=== PATIENT | male | born 1960 | race African-American/Black ===

== ENCOUNTER 2016-12-19 23:45 | Observation (INO) ==
[2016-12-20] MEDS ORDERED: SODIUM CHLORIDE 0.9% 500 ML IV STA (00:04)
[2016-12-20] MEDS ORDERED: ALUM/MAG/SIMETH/LIDO VISC 1:1 30 ML BOTTLE PO STA (00:04)
[2016-12-20] MEDS ORDERED: MORPHINE 2 MG/1 ML SYRINGE IV STA (00:04)
[2016-12-20] MEDS ORDERED: ONDANSETRON 4 MG/2 ML VIAL IV STA (00:04)
[2016-12-20] MEDS ORDERED: ASPIRIN 325 MG TABLET PO STA (00:04)
[2016-12-20] MEDS ORDERED: NITROGLYCERIN 2% OINT 1 INCH/GM PACK TOP STA (00:04)
--- NOTE | 2016-12-20 00:21 | Emergency Department Note ---
Omari Rossi Manpreet, am scribing for, and in the presence of, Chance Bach MD 00:19. Mikala Rossi Charles R, MD, personally performed the services described in this documentation, ascribed by Flip Salcido in my presence, and it is both accurate and complete . Arrival - Arrival ED Nursing Triage Note: per [facility], ambulance was called by witnesses stating patient was walking down road yelling he was having cp. upon ariival patient was found lying in the grass, unresponsive to voice, became responsive with sternal rub. nitro sub. given enroute x 2 Mode of Arrival: Stretcher Time Seen by Provider: 12/19/16 23:53 - History of Present Illness HPI Narrative: Pt is a 55 y/o male who presents to the ED with CC of CP and Abd pain since earlier tonight. Pt states he felt burning in his stomach and heart. Pt states he is homeless and has no PMHx of [place]. Pt reports of smoking tobacco, occasional EtOH use, and crack/cocaine use. Pt admits to smoking crack drinking beer earlier tonight. Pt denies PMHx of hepatitis or HIV. No other pains/complaints reported to ED. Onset (ago): hour(s) Consistency: constant Severity: moderate Severity scale (1-10): 4 Quality: burning Allergies/Adverse Reactions: Allergies Allergy/AdvReac Type Severity Reaction Status Date / Time No Known Allergies Allergy Unverified 04/04/16 23:06 Home Medications: Home Medications Medication Instructions Recorded Confirmed Type Ondansetron Odt Tab [Zofran Odt] 4 mg PO Q6H #15 tablet 12/12/16 Rx Pantoprazole Tab [Protonix Tab] 40 mg PO DAILY #14 tablet 12/12/16 Rx Review of System - Review of System 12 point system: reviewed and no additional remarkable complaints except as stated - Review of System Constitutional: Absent: chills, fever Respiratory: Absent: respiratory distress, wheezing Cardiovascular: Present: chest pain Gastrointestinal: Present: abdominal pain. Absent: nausea, vomiting, diarrhea Musculoskeletal: Absent: arm pain, back pain, lower back pain, leg pain, neck pain Neurological: Absent: headache, weakness Medical,Surgical,& Family Hx - Medical History Rheumatology: History of;: Gout Gastrointestinal: History of: GI Problems (ulcers) - Surgical History Abdominal Surgeries: Surgical HX of: Abdominal Surgery - Social History Smoking Status: Current every day smoker Frequency of Alcohol Use: Unknown Type of Drug Use: Unknown Exam Vital Signs: Vital Signs Temperature 97.5 F L 12/19/16 23:51 Pulse Rate 92 H 12/19/16 23:51 Respiratory Rate 21 12/19/16 23:51 Blood Pressure 149/99 12/19/16 23:51 O2 Sat by Pulse Oximetry 99 12/19/16 23:51 - General General appearance: alert - Head Head exam: Present: atraumatic, other (Temporal wasting). Absent: normal inspection - Eye Eye exam: Present: normal appearance, PERRL, EOMI - ENT ENT exam: Present: normal exam, normal oropharynx, mucous membranes moist, TM's normal bilaterally - Neck Neck exam: Present: normal inspection, full ROM, trachea midline. Absent: tenderness, thyromegaly - Chest Chest inspection: Present: normal inspection, symmetric chest wall rise. Absent : tenderness - Respiratory Respiratory exam: Present: normal lung sounds bilaterally. Absent: accessory muscle use, prolonged expiratory phase - Cardiovascular Cardiovascular exam: Present: regular rate, normal rhythm, normal heart sounds. Absent: murmur, rubs, gallop - Abdominal Exam Abdominal exam: Present: tenderness (Epigastric tenderness), normal bowel sounds. Absent: soft, distention - Extremities Exam Extremities exam: Present: normal inspection, full ROM. Absent: tenderness, pedal edema - Back Exam Back exam: Present: normal inspection, full ROM. Absent: tenderness - Neurological Exam Neurological exam: Present: alert, oriented X3, CN II-XII intact, reflexes normal - Psychiatric Psychiatric exam: Present: normal affect, normal mood - Skin Skin exam: Present: warm, dry, intact, normal color. Absent: pallor Course - Consultations Consultation #1: Hospitalist will admit patient Time: 01:16 Results - Labs CBC & BMP: 12/20/16 Unknown 12/20/16 00:22 Lab Results: I have reviewed the patients labs Labs: Laboratory Tests 12/20/16 12/20/16 12/20/16 00:22 00:22 00:22 INR 1.0 PT Patient/Control Mix 10.1 Urine pH 8.0 Ur Specific [place] 1.006 Urine Ketones 5 Urine Urobilinogen < 2.0 H Urine RBC <1 Urine WBC 1 U Cocaine Metab Screen Positive H U Cannabinoids Screen Positive H Laboratory Tests 12/20/16 12/20/16 12/20/16 00:22 00:22 Unknown WBC 7.7 RBC 5.23 Hgb 12.3 L Hct 38.0 L MCV 72.7 L MCH 24 L [place] % (Auto) 13.0 H [place] # (Auto) 1.0 H Sodium 139 Potassium 3.4 L Chloride 100 Carbon Dioxide 30 Anion Gap 12.4 Serum Alcohol < 15 L Disposition Clinical Impression: Chest pain, Homeless, Cocaine abuse, Cannabis abuse, Hypokalemia Case discussed with: patient Disposition: Disch To Home/Self Care Condition: Stable Time of Disposition: 01:15
[2016-12-20] MEDS ORDERED: MORPHINE 2 MG/1 ML SYRINGE ONE (00:30)
[2016-12-20] MEDS ORDERED: NITROGLYCERIN 2% OINT 1 INCH/GM PACK TOP ONE (00:30)
[2016-12-20] MEDS ORDERED: ASPIRIN 325 MG TABLET ONE (00:30)
[2016-12-20] MEDS ORDERED: ONDANSETRON 4 MG/2 ML VIAL ONE (00:30)
[2016-12-20] MEDS ORDERED: ALUM/MAG/SIMETH/LIDO VISC 1:1 30 ML BOTTLE PO ONE (00:31)
[2016-12-20 00:38] LABS: PT Patient Result 10.1 SECS
[2016-12-20 00:42] LABS: Apearance,Urine CLEAR (Clear); Bilirubin,Urine Negative (Negative); Blood, Urine Negative (Negative); Glucose,Urine (UA) Negative (Negative); Ketones,Urine 5 mg/dL (Negative); Mucus,Urine Occasional /LPF (Occasional); Nitrite,Urine Negative (Negative); Protein,Urine Negative; RBC,Urine <1 /HPF (0-4); Urine Color Straw (Yellow); Urine Specific Gravity 1.006 (1.001-1.035); Urine Urobilinogen < 2.0 EU/DL (0.2-1.0); WBC,Urine 1 /HPF (0-6)
[2016-12-20 00:44] LABS: Barbiturates Screen,Urine Negative (Negative); Benzodiazepines Screen,Urine Negative (Negative); Cannabinoid Screen,Urine Positive (Negative); Opiate Screen,Urine Negative (Negative); Phencyclidine Screen,Urine Negative (Negative)
[2016-12-20 00:54] LABS: Alanine Aminotransferase 17 U/L (16-61); Alkaline Phosphatase 109 U/L (45-117); Amylase 70 U/L (25-115); Aspartate Amino Transferase 20 U/L (0-37); Bilirubin,Total < 0.39 MG/DL (0.2-1.0); Blood Urea Nitrogen 9 MG/DL (7-18); Calcium 9.4 MG/DL (8.5-10.1); Glucose 102 MG/DL (74-106); Magnesium 2.1 MG/DL (1.8-2.4); Osmolality,Calculated 275.5 MOS/KG (273-304); Potassium 3.4 MMOL/L (3.5-5.1); Sodium 139 MMOL/L (136-145); Total Protein 7.3 G/DL (6.4-8.3)
[2016-12-20 00:57] LABS: Basophils % 0.4 % (0.0-0.8); Eosinophils # 0.1 10*3/uL (0.0-0.87); Eosinophils % 1.2 % (0.00-10.9); Hemoglobin 12.3 GM/DL (14.0-18.0); Immature Granulocytes % 0.5 %; Immature Granulocytes Absolute 0.04 #; Lymphocytes # 2.1 10*3/uL (1.4-4.0); Lymphocytes % 27.2 % (21.2-54.2); Mean Corpuscular HGB Conc 32.4 GM/DL (32-36); Mean Corpuscular Hemoglobin 24 PG (27-34); Mean Corpuscular Volume 72.7 FL (87-102); Mean Platelet Volume 11.2 FL (9.6-12.0); Neutrophils # 4.5 10*3/uL (1.4-7.4); Neutrophils % 57.7 % (38.7-73.9); Platelet Count 277 T/CUMM (130-400); Red Blood Count 5.23 MC/CUMM (3.8-5.5); Red Cell Distribution Width 13.6 % (9.3-17.3); White Blood Count 7.7 T/CUMM (4-12)
[2016-12-20] MEDS ORDERED: POTASSIUM CHLORIDE 20 MEQ TABLET PO STA (01:07)
[2016-12-20] MEDS ORDERED: POTASSIUM CHLORIDE 20 MEQ TABLET PO ONE (01:17)
[2016-12-20] MEDS ORDERED: ENOXAPARIN 100 MG/ML SYRINGE SUBCUT STA (01:33)
[2016-12-20] MEDS ORDERED: ENOXAPARIN 80 MG/0.8 ML SYRINGE SUBCUT ONE (01:36)
--- NOTE | 2016-12-20 02:06 | Hospitalist History & Physical ---
Assessment and Plan (1) Cannabis abuse Status: Acute Current Visit: Yes (2) Chest pain Status: Acute Current Visit: Yes (3) Cocaine abuse Status: Acute Current Visit: Yes (4) Hypokalemia Status: Acute Assessment and plan: Our plan for this patient will be admitted him to our service. Check cardiac enzymes and consult cardiology. Patient will be admitted to a telemetry bed. Hopefully can be discharged after cardiology evaluation. Current Visit: Yes History of Present Illness Chief complaint: Chest pain History of present illness: Mr. Ruiz is a 56 year old male with past medical history significant for drug abuse presents to our ER tonight. Patient said he has been having chest pain this been going on for little while. He smoked some crack which usually makes it feel better. He reports the chest pain did go away but then it returned as a burning sensation in his chest. He felt short of breath and was diaphoretic. He was radiating to his neck and down his left arm. Patient thought he was having a heart attack and came into our hospital for further evaluation. Patient was admitted to our service through the emergency room. Home Medications Medication Instructions Recorded Confirmed Type Ondansetron Odt Tab [Zofran Odt] 4 mg PO Q6H #15 tablet 12/12/16 Rx Pantoprazole Tab [Protonix Tab] 40 mg PO DAILY #14 tablet 12/12/16 Rx Allergies Allergy/AdvReac Type Severity Reaction Status Date / Time No Known Allergies Allergy Unverified 04/04/16 23:06 Medical,Surgical,& Family Hx - Medical History Rheumatology: History of;: Gout Gastrointestinal: History of: GI Problems (ulcers) - Surgical History Abdominal Surgeries: Surgical HX of: Abdominal Surgery - Family History Family History: noncontributory Additional Family History: Does not know of any history - Social History Smoking Status: Current every day smoker Frequency of Alcohol Use: Unknown Type of Drug Use: Cocaine, Marijuana 12 point system: reviewed and no additional remarkable complaints except as stated Exam - Constitutional Vitals: - General General appearance: alert - Head Head exam: Present: atraumatic, - Eye Eye exam: Present: normal appearance, PERRL, EOMI - ENT ENT exam: Present: normal exam, normal oropharynx, mucous membranes moist, TM's normal bilaterally - Neck Neck exam: Present: normal inspection, full ROM, trachea midline. - Chest Chest inspection: Present: normal inspection, symmetric chest wall rise. - Respiratory Respiratory exam: Present: normal lung sounds bilaterally. - Cardiovascular Cardiovascular exam: Present: regular rate, normal rhythm, normal heart sounds. - Abdominal Exam Abdominal exam: Present: tenderness (Epigastric tenderness), normal bowel sounds. - Extremities Exam Extremities exam: Present: normal inspection, full ROM. - Back Exam Back exam: Present: normal inspection, full ROM. Absent: tenderness - Neurological Exam Neurological exam: Present: alert, oriented X3, CN II-XII intact, reflexes normal - Psychiatric Psychiatric exam: Present: normal affect, normal mood - Skin Skin exam: Present: warm, dry, intact, normal color. Absent: pallor Results - Labs CBC & BMP: 12/20/16 Unknown 12/20/16 00:22
[2016-12-20] MEDS: SODIUM CHLORIDE 0.9% 1,000 ML IV SCH ×2 (02:20→17:44)
[2016-12-20] MEDS: NITROGLYCERIN 2% OINT 1 INCH/GM PACK TOP SCH ×3 (05:34→17:45)
[2016-12-20 05:45] LABS: Basophils % 0.6 % (0.0-0.8); Eosinophils # 0.1 10*3/uL (0.0-0.87); Eosinophils % 2.1 % (0.00-10.9); Hematocrit 32.8 VOL% (42.0-52.0); Hemoglobin 10.7 GM/DL (14.0-18.0); Immature Granulocytes % 0.4 %; Immature Granulocytes Absolute 0.03 #; Lymphocytes # 2.1 10*3/uL (1.4-4.0); Lymphocytes % 31.2 % (21.2-54.2); Mean Corpuscular HGB Conc 32.6 GM/DL (32-36); Mean Corpuscular Hemoglobin 24 PG (27-34); Mean Corpuscular Volume 72.9 FL (87-102); Monocytes # 1.1 10*3/uL (0.11-0.8); Neutrophils # 3.4 10*3/uL (1.4-7.4); Neutrophils % 49.7 % (38.7-73.9); Platelet Count 218 T/CUMM (130-400); Red Cell Distribution Width 13.3 % (9.3-17.3); White Blood Count 6.8 T/CUMM (4-12)
[2016-12-20 06:06] LABS: Eosinophils 1 % (0-10); Lymphocytes 33 % (20-55); Segmented Neutrophils 54 % (50-85); Total Cells Counted 100
[2016-12-20 06:07] LABS: Hypochromasia 1+; Microcytosis 1+; Platelet Estimate Normal
[2016-12-20 06:43] LABS: Albumin 3.3 G/DL (3.4-5.0); Bilirubin,Total 0.9 MG/DL (0.2-1.0); Calcium 8.3 MG/DL (8.5-10.1); Magnesium 2.3 MG/DL (1.8-2.4); Osmolality,Calculated 276.4 MOS/KG (273-304); Potassium 4.1 MMOL/L (3.5-5.1); Risk Ratio 2.14; Total Protein 6.1 G/DL (6.4-8.3); VLDL CHOLESTEROL 9.4 MG/DL
--- NOTE | 2016-12-20 06:43 | EKG Report ---
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
--- NOTE | 2016-12-20 06:43 | EKG Report ---
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
--- NOTE | 2016-12-20 06:43 | EKG Report ---
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
--- NOTE | 2016-12-20 06:46 | XRay Report ---
XR chest 1V portable Indication: Chest pain Comparison: None Technique: Single frontal view of the chest Findings: Heart size appears within normal limits. Chronic change of the lungs without focal consolidation, pleural effusion, or pneumothorax. 1 cm nodular density projects over the right lower lung which may reflect nipple shadow. Recommend repeat 2 view chest x-ray with nipple markers to exclude pulmonary nodule. Osseous and surrounding soft tissue structures demonstrate no acute abnormality. IMPRESSION: As above. PROCEDURE INTERPRETED AT [facility] DEPARTMENT OF RADIOLOGY Final Report Signed by: Dr Zheng Brice
--- NOTE | 2016-12-20 07:56 | XRay Report ---
XR chest 2V Indication: SOB Comparison: Chest x-ray dated December 20, 2016 Technique: Single frontal view of the chest Findings: Heart size appears within normal limits. Chronic change of the lungs without focal consolidation, pleural effusion, or pneumothorax. Bilateral nipple shadows present. Osseous and surrounding soft tissue structures appear grossly unchanged. IMPRESSION: No acute cardiopulmonary process demonstrated. PROCEDURE INTERPRETED AT [facility] DEPARTMENT OF RADIOLOGY Final Report Signed by: Dr Zheng Brice
--- NOTE | 2016-12-20 08:53 | Cardiology Consult Note ---
<Jyotsna Cid - Last Filed: 12/20/16 08:49> Assessment and Plan - Time spent with patient Time spent with patient: Greater than 30 minutes (1) Chest pain Status: Acute Assessment and plan: Patient chest pain is atypical in nature. Troponin has been negative 2 and EKG is unremarkable. I discussed with Dr. Zuniga, we will keep patient n.p.o. and set up for cardiac stress testing today. If patient has negative cardiac stress test, I would recommend patient undergo GI workup. Further plan and addendum to follow per Dr. Zuniga. Current Visit: Yes (2) Abdominal pain Status: Acute Assessment and plan: Per his report, he has had stomach ulcers in the remote past and his symptoms are very similar in nature. He continues to complain of constant burning abdominal pain. The patient had negative cardiac stress testing would recommend he be evaluated by gastroenterology. Current Visit: Yes (3) History of gastric ulcer Status: Chronic Current Visit: No (4) Cannabis abuse Status: Chronic Assessment and plan: smoking cessation encouraged. Current Visit: Yes (5) Cocaine abuse Status: Chronic Assessment and plan: Smoking cessation encouraged. Current Visit: Yes (6) Homeless Status: Chronic Current Visit: Yes History of Present Illness - Data of Consult Patient: new to practice Consult date: 12/20/16 Requesting Physician: Duc Jaeger - Consult Narrative Reason for consult: Chest pain History of present illness: [place]: None PCP: None Mr. Ruiz is a 56 year old homeless male without a known history of coronary artery disease, not routinely followed by cardiology. Patient presented to the emergency department yesterday with months of abdominal and chest pain. Patient has cardiac risk factors significant for current everyday smoker (tobacco, cocaine and cannabis). He denies any significant family history of coronary artery disease. He does not take any prescription medications on a daily basis. Reports a prior history of stomach ulcers. Patient tells me that he has been homeless for the past 5 years and has never undergone heart catheterization or cardiac stress testing. Patient reports an ongoing abdominal and chest pain for several years. Over the past week, this has progressively worsened. He describes the pain as a constant burning sensation that waxes and wanes. It begins in his stomach and radiates up to his chest and throat. Per his report, he has had stomach ulcers in the remote past and his symptoms are very similar in nature. His chest pain does not have an exertional component. Associated with shortness of breath, diaphoresis and nausea. He reports that his chest pain resolves after smoking cocaine. However, approximately five minutes later it returns and remains constant throughout the rest of the day. Yesterday, he tells me that he drank a six pack of hot beer that he found on the side of the road. This worsened his abdominal pain to point that he couldn't tolerate it any longer. At that point, he felt that he needed to be further evaluated in the emergency department. He denies any history of dark stools or bright red blood per rectum. He also denies fever, chills, cough, vomiting, orthopnea, PND and lower extremity swelling. Patient has been admitted under hospitalist service and housed on the telemetry floor. Cardiology has been consulted to further evaluate patient's chest pain. Patient was seen and examined on the telemetry unit. Upon entering the room, patient was resting comfortably in no acute distress. He continues to complain of mild chest discomfort and abdominal pain. Rates it a 4 out of 10. However, his troponin has been negative 2. EKG is unremarkable. At this point, we will keep patient n.p.o. and set patient up for cardiac stress testing. If stress test is negative I would recommend patient have GI evaluation. Further plan and addendum to follow per Dr. Zuniga. CC: Erica Worley MD - Home Medications and Allergies Home Medications: Home Medications Medication Instructions Recorded Confirmed Type Ondansetron Odt Tab [Zofran Odt] 4 mg PO Q6H #15 tablet 12/12/16 Rx Pantoprazole Tab [Protonix Tab] 40 mg PO DAILY #14 tablet 12/12/16 Rx Allergies/Adverse Reactions: Allergies Allergy/AdvReac Type Severity Reaction Status Date / Time No Known Allergies Allergy Unverified 04/04/16 23:06 - Constitutional Constitutional: Present: fatigue, malaise. Absent: chills, fever(s), weakness, weight gain, weight loss - Cardiovascular Cardiovascular: Present: as per HPI, chest pain at rest, diaphoresis, dyspnea. Absent: edema, radiating jaw, neck or arm pain, lightheadedness, orthopnea, palpitations, PND - Respiratory Respiratory: Present: dyspnea. Absent: cough, hemoptysis, wheezing, snoring, pain on inspiration, change in phlegm color - Gastrointestinal Gastrointestinal: Present: abdominal pain, dyspepsia, heartburn, nausea. Absent : change in bowel habits, coffee ground emesis, hematemesis, hematochezia, loose stools, melena, vomiting - Neurological Neurological: Absent: abnormal gait, abnormal speech, behavioral changes, dizziness, frequent falls, numbness, syncope - Hematologic/Lymphatic Hematologic/Lymphatic: Absent: easy bleeding, easy bruising, lymphadenopathy Medical,Surgical,& Family Hx - Medical History Gastrointestinal: History of: GI Problems (ulcers) - Surgical History Abdominal Surgeries: Surgical HX of: Abdominal Surgery - Family History Family History: Reports;: Family Diabetes ("all my folks") Denies;: Family Heart Disease - Social History Smoking Status: Current every day smoker Frequency of Alcohol Use: Frequently Type of Drug Use: Cocaine, Marijuana Physical Examination Vital Signs Temp Pulse Resp BP Pulse Ox 97.5 F L 92 H 21 149/99 99 12/19/16 23:51 12/19/16 23:51 12/19/16 23:51 12/19/16 23:51 12/19/16 23:51 General: Present: No Apparent Distress Neck: Present: Supple Neck, Midline Trachea, No JVD/HJR, No Masses, No Bruit, No Lymphadenopathy, No Thyromegaly Cardiac: Present: Reg Rate and Rhythm, Regular Rate, Regular Rhythm, S1/S2, No Murmur Lungs: Present: Normal Exam, Clear Ascult./Percussion, Normal Breath Sounds, No Wheeze, Rales, Rhonchi Abdomen: Present: Soft, Active Bowel Sounds, Tender. Absent: Firm, Distended Skin: Present: Clear. Absent: Rash, Suspicious Lesions, Ulceration Extremities: Present: Normal Gait, No Clubbing, No Cyanosis, No Edema, Normal Upper Extr. Pulses, Normal Lower Extr. Pulses Result/EKG - Labs CBC & BMP: 12/20/16 Unknown 12/20/16 05:29 Lab Results: I have reviewed the past 24 hour labs Labs: Laboratory Results - last 24 hr 12/20/16 12/20/16 12/20/16 05:29 05:29 05:29 WBC 6.8 RBC 4.50 Hgb 10.7 L Hct 32.8 L MCV 72.9 L MCH 24 L MCHC 32.6 RDW 13.3 Plt Count 218 D MPV 10.0 Neut % (Auto) 49.7 Lymph % (Auto) 31.2 [place] % (Auto) 16.0 H Eos % (Auto) 2.1 Baso % (Auto) 0.6 Neut # (Auto) 3.4 Lymph # (Auto) 2.1 [place] # (Auto) 1.1 H Eos # (Auto) 0.1 Baso # (Auto) 0.0 Total Counted 100 Immature Gran % 0.4 Nucleated RBC % 0.0 Immature Gran # 0.03 Segmented Neutrophils 54 Lymphocytes 33 Monocytes 12 Eosinophils 1 Nucleated RBCs # 0.00 Platelet Estimate Normal Hypochromasia 1+ Microcytosis 1+ Sodium 140 Potassium 4.1 Chloride 105 Carbon Dioxide 26 Anion Gap 13.1 BUN 7 Creatinine 0.60 L GFR Calculation 129 BUN/Creatinine Ratio 11.00 Glucose 94 Calculated Osmolality 276.4 Calcium 8.3 L Magnesium 2.3 Total Bilirubin 0.90 AST 18 ALT 13 L Alkaline Phosphatase 94 Troponin I < 0.015 Total Protein 6.1 L Albumin 3.3 L Globulin 2.8 Albumin/Globulin Ratio 1.1 Triglycerides 47 Cholesterol 163 LDL Cholesterol 78.0 VLDL Cholesterol 9.4 HDL Cholesterol 76 H Heart Disease Risk Ratio 2.14 12/20/16 Unknown WBC 7.7 RBC 5.23 Hgb 12.3 L Hct 38.0 L MCV 72.7 L MCH 24 L MCHC 32.4 RDW 13.6 Plt Count 277 MPV 11.2 Neut % (Auto) 57.7 Lymph % (Auto) 27.2 [place] % (Auto) 13.0 H Eos % (Auto) 1.2 Baso % (Auto) 0.4 Neut # (Auto) 4.5 Lymph # (Auto) 2.1 [place] # (Auto) 1.0 H Eos # (Auto) 0.1 Baso # (Auto) 0.0 Total Counted Immature Gran % 0.5 Nucleated RBC % 0.0 Immature Gran # 0.04 Segmented Neutrophils Lymphocytes Monocytes Eosinophils Nucleated RBCs # 0.00 Platelet Estimate Hypochromasia Microcytosis Sodium Potassium Chloride Carbon Dioxide Anion Gap BUN Creatinine GFR Calculation BUN/Creatinine Ratio Glucose Calculated Osmolality Calcium Magnesium Total Bilirubin AST ALT Alkaline Phosphatase Troponin I Total Protein Albumin Globulin Albumin/Globulin Ratio Triglycerides Cholesterol LDL Cholesterol VLDL Cholesterol HDL Cholesterol Heart Disease Risk Ratio <Duc Zuniga - Last Filed: 12/20/16 10:30> History of Present Illness - Consult Narrative History of present illness: Patient personally interviewed and examined by me and chart reviewed. I reviewed this case with Jyotsna Cid ELECTRIC MOTOR REPAIRING SUPERVISOR. I agree with the evaluation assessment and plan. In addition and summation Mr. Ruiz is a 56 year old male who is an admitted drug abuser with a positive drug screen of cocaine and cannabinoids. He was admitted with just diffuse abdominal and chest pain he has a history of peptic ulcer disease apparent surgery previously. This is chronic and persistent waxes and wanes. It is hard to get a good description from him. He has tobacco abuse. Our plan will be to carry out cardiac perfusion study and this is negative no further evaluation. This patient certainly would be at significant risk to carry catheterization and Percodan scrimmaging secondary to his illicit drug use and probable noncompliance with antiplatelet drugs. If his cardiac perfusion study is negative he can be discharged from our standpoint. He may need a GI evaluation but this could also be done as an outpatient. Exam HEENT: Atraumatic Neck supple Lungs: Clear Cardiovascular regular rate and rhythm without murmur. Chest wall: Tenderness on palpation. Abdomen: No acute distention but has direct tenderness. Neurologic: Alert and oriented and grossly intact. CC: Erica Worley MD Physical Examination Vital Signs Temp Pulse Resp BP Pulse Ox 97.5 F L 92 H 21 149/99 99 12/19/16 23:51 12/19/16 23:51 12/19/16 23:51 12/19/16 23:51 12/19/16 23:51 Result/EKG - Labs CBC & BMP: 12/20/16 Unknown 12/20/16 05:29 Labs: Laboratory Results - last 24 hr 12/20/16 12/20/16 12/20/16 05:29 05:29 05:29 WBC 6.8 RBC 4.50 Hgb 10.7 L Hct 32.8 L MCV 72.9 L MCH 24 L MCHC 32.6 RDW 13.3 Plt Count 218 D MPV 10.0 Neut % (Auto) 49.7 Lymph % (Auto) 31.2 [place] % (Auto) 16.0 H Eos % (Auto) 2.1 Baso % (Auto) 0.6 Neut # (Auto) 3.4 Lymph # (Auto) 2.1 [place] # (Auto) 1.1 H Eos # (Auto) 0.1 Baso # (Auto) 0.0 Total Counted 100 Immature Gran % 0.4 Nucleated RBC % 0.0 Immature Gran # 0.03 Segmented Neutrophils 54 Lymphocytes 33 Monocytes 12 Eosinophils 1 Nucleated RBCs # 0.00 Platelet Estimate Normal Hypochromasia 1+ Microcytosis 1+ Sodium 140 Potassium 4.1 Chloride 105 Carbon Dioxide 26 Anion Gap 13.1 BUN 7 Creatinine 0.60 L GFR Calculation 129 BUN/Creatinine Ratio 11.00 Glucose 94 Calculated Osmolality 276.4 Calcium 8.3 L Magnesium 2.3 Total Bilirubin 0.90 AST 18 ALT 13 L Alkaline Phosphatase 94 Troponin I < 0.015 Total Protein 6.1 L Albumin 3.3 L Globulin 2.8 Albumin/Globulin Ratio 1.1 Triglycerides 47 Cholesterol 163 LDL Cholesterol 78.0 VLDL Cholesterol 9.4 HDL Cholesterol 76 H Heart Disease Risk Ratio 2.14 12/20/16 Unknown WBC 7.7 RBC 5.23 Hgb 12.3 L Hct 38.0 L MCV 72.7 L MCH 24 L MCHC 32.4 RDW 13.6 Plt Count 277 MPV 11.2 Neut % (Auto) 57.7 Lymph % (Auto) 27.2 [place] % (Auto) 13.0 H Eos % (Auto) 1.2 Baso % (Auto) 0.4 Neut # (Auto) 4.5 Lymph # (Auto) 2.1 [place] # (Auto) 1.0 H Eos # (Auto) 0.1 Baso # (Auto) 0.0 Total Counted Immature Gran % 0.5 Nucleated RBC % 0.0 Immature Gran # 0.04 Segmented Neutrophils Lymphocytes Monocytes Eosinophils Nucleated RBCs # 0.00 Platelet Estimate Hypochromasia Microcytosis Sodium Potassium Chloride Carbon Dioxide Anion Gap BUN Creatinine GFR Calculation BUN/Creatinine Ratio Glucose Calculated Osmolality Calcium Magnesium Total Bilirubin AST ALT Alkaline Phosphatase Troponin I Total Protein Albumin Globulin Albumin/Globulin Ratio Triglycerides Cholesterol LDL Cholesterol VLDL Cholesterol HDL Cholesterol Heart Disease Risk Ratio
[2016-12-20] MEDS: ASPIRIN EC 325 MG TABLET PO SCH (09:22)
[2016-12-20] MEDS: PANTOPRAZOLE 40 MG TABLET PO SCH (09:22)
[2016-12-20] MEDS ORDERED: REGADENOSON 0.4 MG/5 ML SYRINGE IV ONE (11:08)
--- NOTE | 2016-12-20 11:33 | Event Note ---
Underwent Lexiscan stress testing. Offered treadmill portion however patient felt as if he could not safely traversed treadmill therefore Lexiscan stress testing protocol utilized. Tolerated without chest pain, heaviness, tightness or shortness of breath. Mild nausea noted. No ST or EKG changes noted. No arrhythmia noted. Blood pressure normal throughout entire procedure. Now, patient is being transitioned to nuclear medicine for final scan. Dr. Andrews to read, interpreted, and advise.
[2016-12-20] MEDS: MORPHINE 2 MG/1 ML SYRINGE IV PRN ×2 (11:46→21:35)
[2016-12-20] MEDS: ENOXAPARIN 60 MG/0.6 ML SYRINGE SUBCUT SCH ×2 (11:46→21:36)
[2016-12-20 12:46] LABS: Troponin I Only < 0.015 NG/ML (0.00-0.045)
--- NOTE | 2016-12-20 16:33 | Hospitalist Progress Note ---
<Ye Clark - Last Filed: 12/20/16 16:30> Assessment and Plan - Time spent with patient Time spent with patient: Less than 30 minutes Time spent discussing smoking cessation with patient: 3 to 10 minutes (1) Chest pain Status: Acute Assessment and plan: Improved. Current Visit: Yes (2) Homeless Status: Chronic Current Visit: Yes (3) Hypokalemia Status: Acute Assessment and plan: Potassium has normalized today. 4.1 Current Visit: Yes Hospitalist: Subjective Interval history: Patient seen and examined today. He was extremely drowsy on exam but appears to be in no acute distress. Patient had a Lexiscan stress test today which he tolerated well without chest pain, heaviness, tightness or shortness of breath. Still awaiting the results of the nuclear med scan to be radiated. Patient voices no complaints at this time. Denies chest pain, palpitations, syncope. Patient reports that he is homeless. Given the time of day and that we are still awaiting final results of his stress test, we will keep the patient overnight with plan for discharge tomorrow. Exam - Constitutional Vitals: Period Temp Pulse Resp BP Sys/Dao Pulse Ox Last 24 Hr 97.4 F-99.4 F 61-81 16-18 126-133/67-100 98-100 Exam: General appearance: normal weight, no acute distress - Head Head exam: Present: normocephalic, atraumatic - Eye Eye exam: Present: EOMI. Absent: conjunctival injection, nystagmus Pupils: Present: DORA, normal accommodation - ENT ENT exam: Present: normal exam, normal external ear exam - Neck Neck exam: Present: normal inspection. Absent: lymphadenopathy, tenderness, thyromegaly - Respiratory Respiratory exam: Present: clear to auscultation bilaterally. Absent: rales, rhonchi, wheezes - Cardiovascular Cardiovascular exam: Present: regular rate and rhythm. Absent: carotid bruit, gallop, rubs - GI/Abdominal GI/Abdominal exam: Present: normal bowel sounds. Absent: ascites, distended, mass - Extremities Exam Extremities exam: Present: normal inspection, normal capillary refill. Absent: edema - Back Exam Back exam: Absent: CVA tenderness (L), CVA tenderness (R) - Neurological Exam Neurological exam: Present: drowsy, oriented X3 - Psychiatric Psychiatric exam: Present: normal affect, normal mood - Skin Skin exam: Present: normal color, warm, dry Results - Labs CBC & BMP: 12/20/16 Unknown 12/20/16 05:29 Lab Results: I have reviewed the past 24 hour labs <Erica Worley - Last Filed: 12/20/16 17:16> Assessment and Plan (1) Illicit drug use Status: Acute Current Visit: Yes (2) Chest pain Status: Acute Current Visit: Yes Hospitalist: Subjective Interval history: I have personally seen and examined this patient today. I agree with the above note as prepared by the advanced practice provider. I agree with the assessment and plan. Case discussed with cardiology. Nuclear stress test to be read later today. Plan for discharge home in a.m. Patient advised to discontinue the use of illicit drugs. Cardiac enzymes remain negative and patient remains pain-free. Exam - Constitutional Vitals: Period Temp Pulse Resp BP Sys/Dao Pulse Ox Last 24 Hr 97.4 F-99.4 F 61-81 16-18 104-133/66-100 98-100 Exam: I have personally seen and examined this patient today. I agree with the above note as prepared by the advanced practice provider. I agree with the physical exam and assessment and plan. Results - Labs CBC & BMP: 12/20/16 Unknown 12/20/16 05:29 Lab Results: I have reviewed the past 24 hour labs
[2016-12-21] MEDS: NITROGLYCERIN 2% OINT 1 INCH/GM PACK TOP SCH ×3 (00:06→11:05)
[2016-12-21 06:11] LABS: Basophils % 0.5 % (0.0-0.8); Eosinophils # 0.2 10*3/uL (0.0-0.87); Eosinophils % 2.6 % (0.00-10.9); Hematocrit 33.9 VOL% (42.0-52.0); Hemoglobin 10.7 GM/DL (14.0-18.0); Immature Granulocytes % 0.5 %; Immature Granulocytes Absolute 0.03 #; Lymphocytes % 46.4 % (21.2-54.2); Mean Corpuscular HGB Conc 31.6 GM/DL (32-36); Mean Corpuscular Hemoglobin 23 PG (27-34); Mean Corpuscular Volume 73.2 FL (87-102); Mean Platelet Volume 10.7 FL (9.6-12.0); Monocytes # 1.1 10*3/uL (0.11-0.8); Monocytes % 17.2 % (1.7-12.7); Neutrophils # 2.1 10*3/uL (1.4-7.4); Neutrophils % 32.8 % (38.7-73.9); Platelet Count 242 T/CUMM (130-400); Red Blood Count 4.63 MC/CUMM (3.8-5.5); Red Cell Distribution Width 13.7 % (9.3-17.3); White Blood Count 6.5 T/CUMM (4-12)
[2016-12-21 06:39] LABS: Eosinophils 3 % (0-10); Hypochromasia 2+; Lymphocytes 42 % (20-55); Microcytosis 1+; Platelet Estimate Adequate; Segmented Neutrophils 39 % (50-85); Total Cells Counted 100
[2016-12-21 06:47] LABS: Calcium 8.5 MG/DL (8.5-10.1); Magnesium 2.2 MG/DL (1.8-2.4); Osmolality,Calculated 277.3 MOS/KG (273-304); Potassium 3.9 MMOL/L (3.5-5.1)
[2016-12-21] MEDS: SODIUM CHLORIDE 0.9% 1,000 ML IV SCH (07:35)
[2016-12-21] MEDS: ASPIRIN EC 325 MG TABLET PO SCH (08:37)
[2016-12-21] MEDS: ENOXAPARIN 60 MG/0.6 ML SYRINGE SUBCUT SCH (08:37)
[2016-12-21] MEDS: PANTOPRAZOLE 40 MG TABLET PO SCH (08:37)
[2016-12-21 11:40] VITALS: BP 108/64
--- NOTE | 2016-12-21 14:29 | Discharge Summary ---
Hospital Course - Hospital Course Hospital Course: 56-year-old -[place] male admitted to the hospital with chest pain. He was seen in consultation by cardiology and had serial cardiac enzymes which remained negative. He underwent nuclear stress testing which was negative for any reversible ischemia. He is being discharged home today in stable condition to follow-up as an outpatient. The patient has a history of chronic illicit drug use. He is also homeless and lives in his car. He had continues to use crack cocaine. He has been advised to discontinue the use of all of illicit drugs, tobacco, alcohol. He verbalizes understanding, but I question his compliance. - Time spent with patient Time with patient DS: Less than 30 minutes Diagnosis - Discharge Diagnosis (1) Illicit drug use Status: Chronic (2) Chest pain Status: Resolved Discharge Plan - Discharge Data Disposition: Disch To Home/Self Care Condition at Discharge: Stable Discharge Diet: advance to your usual diet Activity: resume usual activities as tolerated Hygiene: no restrictions Weight Bearing at Discharge: full weight bearing - Discharge Medications Continue Ondansetron Odt Tab [Zofran Odt] 4 mg PO Q6H #15 tablet Pantoprazole Tab [Protonix Tab] 40 mg PO DAILY #14 tablet - Follow Up or Referral - Forms/Instructions Additional Discharge Instructions: Stop illicit drug use Exam - Constitutional Vitals: Period Temp Pulse Resp BP Sys/Dao Pulse Ox Last 24 Hr 97.1 F-98.6 F 58-83 16-18 104-135/64-79 90-100 Exam: Constitutional System: No distress. No tremulousness. Head: Normocephalic, atraumatic. Ears, Nose and Throat System: No pain or tenderness. No epistaxis or discharge Eyes System: Pupils equal, round, and reactive. Extraocular muscles intact. Neck: Supple, without adenopathy, No jugular venous distention. No thyromegaly, neck mass, or prior surgery apparent. Respiratory System: Chest clear to auscultation. Cardiovascular System: Heart with regular rate and rhythm. No murmur. GI System: Abdomen soft, nontender. Normo active bowel sounds present. Musculoskeletal System: limbs with no pedal edema. Full distal pulses. Neurological System: No discernable sensory deficit. No aphasia Psychiatric System: Conversation is rational Discharge Results Procedures and tests throughout hospitalization: Pending Orders 12/20/16 09:40 NM shayne perf SPECT rest or str Routine Labs on day of discharge: Labs from last 24 hours 12/21/16 12/21/16 03:57 03:57 WBC 6.5 RBC 4.63 Hgb 10.7 L Hct 33.9 L MCV 73.2 L MCH 23 L MCHC 31.6 L RDW 13.7 Plt Count 242 MPV 10.7 Neut % (Auto) 32.8 L Lymph % (Auto) 46.4 [place] % (Auto) 17.2 H Eos % (Auto) 2.6 Baso % (Auto) 0.5 Neut # (Auto) 2.1 Lymph # (Auto) 3.0 [place] # (Auto) 1.1 H Eos # (Auto) 0.2 Baso # (Auto) 0.0 Total Counted 100 Immature Gran % 0.5 Nucleated RBC % 0.0 Immature Gran # 0.03 Segmented Neutrophils 39 L Lymphocytes 42 Monocytes 16 H Eosinophils 3 Nucleated RBCs # 0.00 Platelet Estimate Adequate Hypochromasia 2+ Microcytosis 1+ Sodium 141 Potassium 3.9 Chloride 106 Carbon Dioxide 28 Anion Gap 10.9 BUN 10 Creatinine 0.80 GFR Calculation 115 BUN/Creatinine Ratio 12.00 Glucose 69 L Calculated Osmolality 277.3 Calcium 8.5 Magnesium 2.2 DS: Provider Date of admission: 12/20/16 01:34 Primary care physician: . No PCP Attending physician on admission: Duc Jaeger MD Consults: 12/20/16 02:08 Consult to Case Mgmt/Social Srvs [CONS] Routine Reason for Case Mgmt/Social Srvs: Rehab Consult to Physician [CONS] Routine Comment: Chest pain Consulting Provider: Cardiology - [facility] When should Consulting Provider be notified: In am Person Notified: [email or web address]-[email or web address] Date Notified: 12/20/16 Time Notified: 07:38 12/20/16 02:45 Consult to Pastoral Services [CONS] Routine Comment: Pastoral Screen: Request Converting Technician Visit Pastoral Screen Source of Request: Patient Discharging clinician: Erica Worley MD Expected date of discharge: 12/21/16
--- NOTE | 2016-12-22 07:49 | Nuclear Medicine Report ---
MYOCARDIAL PERFUSION SCAN DATE: 12/20/2016 ATTENDING PHYSICIAN: Duc Jaeger MD BRIEF CLINICAL SUMMARY: The patient is a 56-year-old with uncertain history of present illness. PHARMACOLOGIC SESTAMIBI MYOCARDIAL PERFUSION SCAN WITH GATING: The patient was injected with 10 mCi of Sestamibi before being sent for resting images to be obtained. The patient was on Lexiscan prot ocol where he had no chest discomfort or EKG changes. He did have mild nausea. After Lexiscan he w as injected with 30 mCi of Sestamibi. He was later sent for stress images to be obtained. The 3-D orthogonal reconstruction view shows a moderate sized fixed apical defect of moderate severi ty. Perfusion of the anterior and lateral james appeared to be normal. The inferior wall, there is a large amount of extracardiac radiotracer uptake adjacent and contiguous with the inferior wall. There is some moderate fixed inferior thinning contiguous with this. Raw data in cine mode shows moderate patient motion with significance subdiaphragmatic artifact. Gated stress images show normal LV systolic function with ejection fraction estimated 56% with discr ete area of inferior apical akinesis, which appears to be related to technical factors given the asy mmetric shape of the defect. The ventricular size appears to be normal. IMPRESSION: 1. SCINTIGRAPHICALLY BORDERLINE NORMAL PHARMACOLOGIC MYOCARDIAL PERFUSION SCAN WITH GATING. 2. MODERATE SIZED FIXED APICAL DEFECT OF MODERATE SEVERITY RELATED TO SCARRING VERSUS SUBDIAPHRAGMA TIC ARTIFACT. 3. MODERATE FIXED INFERIOR THINNING MORE LIKELY RELATED TO SUBDIAPHRAGMATIC ARTIFACT THAN TO SCARRI NG. 4. NORMAL LV SYSTOLIC FUNCTION WITH EJECTION FRACTION ESTIMATED 56%. 5. WALL MOTION WITH THE EXCEPTION OF DISCRETE VERY ASYMMETRIC INFEROAPICAL DEFECT, WHICH IS LIKELY RELATED TO TECHNICAL FACTORS AND ARTIFACT. 6. NORMAL LEFT VENTRICULAR END-DIASTOLIC VOLUME IS NOTED. RECOMMENDATION AND DISCUSSION: The study does not suggest significant coronary ischemia. The apical defect is almost completely fi xed and is modest in size. There is moderate motion defect as well as large amount of GI artifact o n study. Clinical correlation suggested. Procedure performed and interpreted at [facility] Department of Radiology.
== END 2016-12-21 14:53 | disposition home or self-care (01) ==
LOC: EDBD → EDUNIT# → N.EDINP 23:45 → N.ED 23:45 → SUATTDRO 12-20 01:34 → N.TELES 12-20 02:00
PROVIDERS: ADMIT Internal Medicine; ATTEND Family Medicine

== ENCOUNTER 2019-04-16 02:18 | Observation (INO) ==
[2019-04-16] MEDS ORDERED: SODIUM CHLORIDE 0.9% 1,000 ML IV STA (03:16)
[2019-04-16] MEDS ORDERED: ONDANSETRON 4 MG/2 ML VIAL IV STA (03:16)
[2019-04-16] MEDS ORDERED: PANTOPRAZOLE 40 MG VIAL IV STA (03:16)
[2019-04-16 04:52] LABS: Basophils # 0.1 10*3/uL (0.0-0.2); Eosinophils # 0.3 10*3/uL (0.0-0.87); Eosinophils % 3.6 % (0.00-10.9); Hematocrit 40.9 VOL% (42.0-52.0); Hemoglobin 12.8 GM/DL (14.0-18.0); Immature Granulocytes % 0.3 %; Immature Granulocytes Absolute 0.02 #; Lymphocytes # 2.2 10*3/uL (1.4-4.0); Lymphocytes % 32.6 % (21.2-54.2); Mean Corpuscular HGB Conc 31.3 GM/DL (32-36); Mean Corpuscular Volume 74.4 FL (87-102); Mean Platelet Volume 10.3 FL (9.6-12.0); Monocytes % 21.9 % (1.7-12.7); Neutrophils % 40.6 % (38.7-73.9); Platelet Count 275 T/CUMM (130-400); Red Cell Distribution Width 14.6 % (9.3-17.3); White Blood Count 6.9 T/CUMM (4-12)
[2019-04-16 05:22] LABS: Alanine Aminotransferase 21 U/L (16-61); Albumin 3.8 G/DL (3.4-5.0); Alkaline Phosphatase 159 U/L (45-117); Amylase 80 U/L (25-115); Aspartate Amino Transferase 22 U/L (0-37); Blood Urea Nitrogen 15 MG/DL (7-18); Calcium 9.6 MG/DL (8.5-10.1); Glucose 73 MG/DL (74-106); Osmolality,Calculated 272.8 MOS/KG (273-304); Total Protein 7.6 G/DL (6.4-8.3)
[2019-04-16 05:29] LABS: Eosinophils 7 % (0-10); Hypochromasia 1+; Lymphocytes 37 % (20-55); Platelet Estimate Adequate; Segmented Neutrophils 40 % (50-85); Total Cells Counted 100
[2019-04-16] MEDS ORDERED: metroNIDAZOLE INJ 500 MG in PREMIX 1 EACH IV STA (05:30)
[2019-04-16] MEDS ORDERED: CIPROFLOXACIN INJ 400 MG in PREMIX 1 EACH IV STA (05:30)
[2019-04-16] MEDS ORDERED: NICOTINE 21 MG/24 HR PATCH TRANSDERM PRN (06:19)
[2019-04-16] MEDS ORDERED: ZALEPLON 5 MG CAPSULE PO PRN (06:19)
[2019-04-16] MEDS ORDERED: ONDANSETRON 4 MG/2 ML VIAL IV PRN (06:19)
[2019-04-16] MEDS ORDERED: hydrALAZINE 20 MG/1 ML VIAL IV PRN (06:37)
[2019-04-16] MEDS ORDERED: HydrOXYzine PAMOATE 25 MG CAPSULE PO PRN (06:39)
[2019-04-16] MEDS ORDERED: SODIUM CHLORIDE 0.9% 500 ML IV STA (06:55)
[2019-04-16] MEDS: ENOXAPARIN 40 MG/0.4 ML SYRINGE SUBCUT SCH (07:35)
[2019-04-16 07:52] LABS: Apearance,Urine CLEAR (Clear); Bilirubin,Urine Negative (Negative); Blood, Urine Negative (Negative); Glucose,Urine (UA) Negative (Negative); Ketones,Urine Negative (Negative); Nitrite,Urine Negative (Negative); Protein,Urine Negative; RBC,Urine 1 /HPF (0-4); Urine Color Colorless (Yellow); Urine Specific Gravity 1.016 (1.001-1.035); Urine Urobilinogen < 2.0 EU/DL (0.2-1.0)
[2019-04-16 08:05] LABS: Barbiturates Screen,Urine Negative (Negative); Benzodiazepines Screen,Urine Negative (Negative); Cannabinoid Screen,Urine Negative (Negative); Opiate Screen,Urine Negative (Negative); Phencyclidine Screen,Urine Negative (Negative)
[2019-04-16] MEDS: PANTOPRAZOLE 40 MG TABLET PO SCH ×2 (09:56→21:45)
[2019-04-16] MEDS: DICYCLOMINE 20 MG TABLET PO SCH ×3 (09:56→21:45)
[2019-04-16] MEDS: SUCRALFATE 1 GM/10 ML UDCUP PO SCH ×4 (09:56→21:45)
[2019-04-16] MEDS: DEXTROSE 5% NACL 0.45% 1,000 ML IV SCH ×2 (09:56→19:33)
[2019-04-16] MEDS: NICOTINE 21 MG/24 HR PATCH TRANSDERM SCH (11:33)
[2019-04-17] MEDS: DEXTROSE 5% NACL 0.45% 1,000 ML IV SCH ×3 (03:50→21:48)
[2019-04-17 05:22] LABS: Basophils # 0.1 10*3/uL (0.0-0.2); Basophils % 0.8 % (0.0-0.8); Eosinophils # 0.3 10*3/uL (0.0-0.87); Eosinophils % 4.2 % (0.00-10.9); Hematocrit 38.4 VOL% (42.0-52.0); Immature Granulocytes % 0.3 %; Immature Granulocytes Absolute 0.02 #; Lymphocytes % 33.5 % (21.2-54.2); Mean Corpuscular HGB Conc 31.3 GM/DL (32-36); Mean Platelet Volume 10.7 FL (9.6-12.0); Monocytes % 18.3 % (1.7-12.7); Neutrophils % 42.9 % (38.7-73.9); Platelet Count 262 T/CUMM (130-400); Red Blood Count 5.26 MC/CUMM (3.8-5.5); Red Cell Distribution Width 14.5 % (9.3-17.3)
[2019-04-17] MEDS: ENOXAPARIN 40 MG/0.4 ML SYRINGE SUBCUT SCH (05:30)
[2019-04-17 05:44] LABS: Band Neutrophils 1 % (0-10); Eosinophils 3 % (0-10); Lymphocytes 41 % (20-55); Segmented Neutrophils 46 % (50-85); Total Cells Counted 100
[2019-04-17 05:45] LABS: Hypochromasia 1+; Microcytosis 1+; Ovalocytes Slight; Platelet Estimate Normal; Target Cells Slight
[2019-04-17 05:46] LABS: Atypical Lymphocytes Few
[2019-04-17 05:57] LABS: Osmolality,Calculated 278.3 MOS/KG (273-304)
[2019-04-17] MEDS: PANTOPRAZOLE 40 MG TABLET PO SCH ×2 (08:57→21:47)
[2019-04-17] MEDS: NICOTINE 21 MG/24 HR PATCH TRANSDERM SCH (08:57)
[2019-04-17] MEDS: DICYCLOMINE 20 MG TABLET PO SCH ×3 (08:58→21:47)
[2019-04-17] MEDS: SUCRALFATE 1 GM/10 ML UDCUP PO SCH ×4 (08:58→21:47)
[2019-04-18] MEDS: DEXTROSE 5% NACL 0.45% 1,000 ML IV SCH ×2 (06:30→14:54)
[2019-04-18] MEDS: SUCRALFATE 1 GM/10 ML UDCUP PO SCH ×3 (07:30→17:44)
[2019-04-18] MEDS ORDERED: LACTATED RINGERS 1,000 ML IV SCH (08:00)
[2019-04-18] MEDS: DICYCLOMINE 20 MG TABLET PO SCH ×2 (09:00→15:43)
[2019-04-18] MEDS ORDERED: PROPOFOL 200 MG/20 ML VIAL IV ONE (12:06)
[2019-04-18] MEDS ORDERED: LIDOCAINE 2% 5 ML VIAL ONE (12:06)
[2019-04-18] MEDS ORDERED: AMOXICILLIN 500 MG CAPSULE PO SCH (14:00)
[2019-04-18] MEDS: NICOTINE 21 MG/24 HR PATCH TRANSDERM SCH (14:32)
[2019-04-18] MEDS: BISMUTH SUBSALICYLATE 30 ML/524 MG 240 ML/BOTTLE PO SCH ×2 (14:32→19:11)
[2019-04-18] MEDS: PANTOPRAZOLE 40 MG TABLET PO SCH (14:32)
[2019-04-18] MEDS ORDERED: metroNIDAZOLE 500 MG TABLET PO SCH (15:00)
[2019-04-18 16:33] VITALS: BP 147/85
== END 2019-04-18 19:20 | disposition home or self-care (01) ==
LOC: EDBD → EDUNIT# → SUATTDRO → N.EDINP 02:18 → N.ED 02:18 → N.EDINP 08:40 → N.3E 08:56
PROVIDERS: ADMIT Internal Medicine; ATTEND Internal Medicine

== ENCOUNTER 2020-09-17 00:22 | Observation (INO) ==
[2020-09-17] MEDS ORDERED: MORPHINE 4 MG/1 ML VIAL IV STA (01:02)
[2020-09-17] MEDS ORDERED: ONDANSETRON 4 MG/2 ML VIAL IV STA (01:02)
[2020-09-17] MEDS ORDERED: PANTOPRAZOLE 40 MG VIAL IV STA (01:02)
[2020-09-17] MEDS ORDERED: ALUM/MAG/SIMETH/LIDO VISC 1:1 30 ML BOTTLE PO STA (01:02)
[2020-09-17] MEDS ORDERED: THIAMINE INJ 100 MG, FOLIC ACID INJ 1 MG, MAGNESIUM SULF INJ 2 GM, MULTIVITAMIN INJ 10 ... IV ONE (01:04)
[2020-09-17] MEDS ORDERED: LABETALOL 20 MG/4 ML SYRINGE IV STA (01:04)
[2020-09-17 01:11] LABS: Basophils # 0.1 10*3/uL (0.0-0.2); Basophils % 0.8 % (0.0-0.8); Eosinophils # 0.2 10*3/uL (0.0-0.87); Eosinophils % 3.2 % (0.00-10.9); Hematocrit 38.1 VOL% (42.0-52.0); Hemoglobin 12.3 GM/DL (14.0-18.0); Immature Granulocytes % 0.2 %; Immature Granulocytes Absolute 0.01 #; Lymphocytes % 30.3 % (21.2-54.2); Mean Corpuscular HGB Conc 32.3 GM/DL (32-36); Mean Corpuscular Volume 73.7 FL (87-102); Mean Platelet Volume 10.1 FL (9.6-12.0); Monocytes % 18.1 % (1.7-12.7); Neutrophils % 47.4 % (38.7-73.9); Platelet Count 255 T/CUMM (130-400); Red Blood Count 5.17 MC/CUMM (3.8-5.5); Red Cell Distribution Width 14.3 % (9.3-17.3); White Blood Count 6.6 T/CUMM (4-12)
[2020-09-17 01:16] LABS: Bilirubin,Urine Negative (Negative); Blood, Urine Negative (Negative); Glucose,Urine (UA) Negative (Negative); Ketones,Urine Negative (Negative); Mucus,Urine Occasional /LPF (Occasional); Nitrite,Urine Negative (Negative); Protein,Urine Negative; RBC,Urine 2 /HPF (0-4); Urine Appearance CLEAR (Clear); Urine Color Colorless (Yellow); Urine Specific Gravity 1.011 (1.001-1.035); Urine Urobilinogen < 2.0 EU/DL (0.2-1.0); WBC,Urine 1 /HPF (0-6)
[2020-09-17 01:22] LABS: Alanine Aminotransferase 17 U/L (16-61); Albumin 3.3 G/DL (3.4-5.0); Alkaline Phosphatase 163 U/L (45-117); Aspartate Amino Transferase 21 U/L (0-37); Bilirubin,Total < 0.39 MG/DL (0.2-1.0); Blood Urea Nitrogen 12 MG/DL (7-18); Carbon Dioxide 28 MMOL/L (21-32); Estimated Glom Filtration Rate 132 ML/MIN; Glucose 91 MG/DL (74-106); Potassium 3.7 MMOL/L (3.5-5.1); Sodium 136 MMOL/L (136-145); Total Protein 7.1 G/DL (6.4-8.3)
[2020-09-17 01:38] LABS: Eosinophils 1 % (0-10); Lymphocytes 40 % (20-55); Platelet Estimate Normal; Segmented Neutrophils 43 % (50-85); Total Cells Counted 100
[2020-09-17 01:39] LABS: Microcytosis 1+
[2020-09-17 04:43] LABS: Barbiturates Screen,Urine Negative (Negative); Benzodiazepines Screen,Urine Negative (Negative); Cannabinoid Screen,Urine Positive (Negative); Opiate Screen,Urine Positive (Negative); Phencyclidine Screen,Urine Negative (Negative)
[2020-09-17] MEDS ORDERED: GLUCAGON 1 MG VIAL IM PRN (05:07)
[2020-09-17] MEDS ORDERED: ONDANSETRON 4 MG/2 ML VIAL IV PRN (05:07)
[2020-09-17] MEDS ORDERED: MORPHINE 4 MG/1 ML VIAL IV PRN (05:07)
[2020-09-17] MEDS ORDERED: NICOTINE 21 MG/24 HR PATCH TRANSDERM PRN (05:07)
[2020-09-17] MEDS ORDERED: DEXTROSE 50% 25 GM/50 ML VIAL IV PRN (05:07)
[2020-09-17] MEDS: SODIUM CHLORIDE 0.9% 1,000 ML IV SCH ×2 (09:10→16:47)
[2020-09-17] MEDS: PANTOPRAZOLE 40 MG VIAL IV SCH ×2 (09:34→20:09)
[2020-09-17] MEDS ORDERED: INFLUENZA VIRUS VACCINE 0.5 ML SYRINGE IM ONE (09:42)
[2020-09-17] MEDS ORDERED: LORazepam 2 MG/1 ML VIAL IV PRN (19:36)
[2020-09-18 06:49] LABS: Basophils % 0.7 % (0.0-0.8); Eosinophils # 0.2 10*3/uL (0.0-0.87); Eosinophils % 3.3 % (0.00-10.9); Hematocrit 39.1 VOL% (42.0-52.0); Hemoglobin 12.5 GM/DL (14.0-18.0); Immature Granulocytes % 0.3 %; Immature Granulocytes Absolute 0.02 #; Lymphocytes # 2.1 10*3/uL (1.4-4.0); Lymphocytes % 35.2 % (21.2-54.2); Mean Corpuscular Volume 73.1 FL (87-102); Monocytes % 17.5 % (1.7-12.7); Platelet Count 262 T/CUMM (130-400); Red Blood Count 5.35 MC/CUMM (3.8-5.5); Red Cell Distribution Width 14.3 % (9.3-17.3); White Blood Count 5.8 T/CUMM (4-12)
[2020-09-18 07:10] LABS: Albumin 3.2 G/DL (3.4-5.0); Atypical Lymphocytes Few; Bilirubin,Total 0.4 MG/DL (0.2-1.0); Calcium 8.7 MG/DL (8.5-10.1); Eosinophils 5 % (0-10); Hypochromasia 1+; Lymphocytes 31 % (20-55); Microcytosis Slight; Osmolality,Calculated 270.7 MOS/KG (273-304); Platelet Estimate Adequate; Potassium 3.7 MMOL/L (3.5-5.1); Segmented Neutrophils 47 % (50-85); Total Cells Counted 100; Total Protein 6.7 G/DL (6.4-8.3)
[2020-09-18] MEDS: PANTOPRAZOLE 40 MG VIAL IV SCH (08:23)
[2020-09-18] MEDS: SODIUM CHLORIDE 0.9% 1,000 ML IV SCH ×2 (08:23→15:50)
[2020-09-18] MEDS: PANTOPRAZOLE 40 MG TABLET PO SCH (20:32)
[2020-09-19] MEDS: PANTOPRAZOLE 40 MG TABLET PO SCH (06:14)
[2020-09-19 07:55] VITALS: BP 175/89
[2020-09-19] MEDS: SODIUM CHLORIDE 0.9% 1,000 ML IV SCH (08:24)
== END 2020-09-19 11:44 | disposition home or self-care (01) ==
LOC: EDBD → SUATTDRO → N.EDINP 00:22 → N.ED 00:22 → MERGE 05:07 → N.4E 07:29
PROVIDERS: ADMIT Internal Medicine; ATTEND Internal Medicine